=== PATIENT | male | born 1980 | race African-American/Black ===

== ENCOUNTER 2017-07-19 19:28 | Emergency (ER) | payer OTHER | END 2017-07-19 21:18 | disposition home or self-care (01) | LOC: ER 19:28 | DX: J06.9 Acute upper respiratory infection, unspecified (principal) | CPT/HCPCS: 99283 ==

== ENCOUNTER 2018-03-14 20:57 | Emergency (ER) | payer OTHER ==
[~2018-03-14] VITALS: Ht 78.7 cm; Wt 97.5 kg
[~2018-03-14 20:57] MED LIST: AZIT250T PO; BENZ100C PO; IBUP-1007 PO; PRED20TA PO; PROAIR HFA8.5 GM INH; PROAIR RESPICL90 MCG IH
[2018-03-14 21:30] LABS: BILIRUBIN,URINE NEGATIVE (NEG); CLARITY,URINE CLEAR; COLOR,URINE YELLOW; NITRITE,URINE NEGATIVE (NEG); PROTEIN,URINE NEGATIVE (NEG-TRACE)
[2018-03-14 21:40] LABS: BACTERIA,URINE 0 /HPF (0-FEW); RBC,URINE OCC /HPF (0-2); SQUAMOUS EPITHELIAL CELL,UR MOD /LPF; WBC,URINE 0 /HPF (0-4)
--- NOTE | 2018-03-14 21:46 | PHYS DOC ---
Past Medical History Past Medical History: No Pertinent History Past Surgical History: No Surgical History Alcohol Use: None Drug Use: None Adult General Chief Complaint Chief Complaint: GROIN PAIN [facility] HPI Patient is a 38 year old male who presents with bilateral groin pain and left testicular pain that has been present for the last couple of days. Patient also indicates he has lower back pain. He denies any chest pain, shortness breath or fever. Patient rates the pain as being moderate and states the pain is worsened with palpation in his groin. He denies any penile discharge or urinary discomfort. Patient states that lower back pain is worsened with movement. He denies any abdominal pain, nausea or vomiting. Review of Systems Review of Systems Constitutional: Denies fever or chills [] Respiratory: Denies cough or shortness of breath [] Cardiovascular: No additional information not addressed in HPI [] GI: Denies abdominal pain, nausea, vomiting or diarrhea [] : Denies dysuria or hematuria. Complains of bilateral groin and left testicular pain. [] Musculoskeletal: [place] of lower back pain. [] All other systems were reviewed and found to be within normal limits, except as documented in this note. Allergies Allergies Allergies Coded Allergies Type Severity Reaction Last Updated Verified No Known Drug Allergies 07/19/17 No Physical Exam Physical Exam Constitutional: Well developed, well nourished, no acute distress, non-toxic appearance. [] HENT: Normocephalic, atraumatic, bilateral external ears normal, oropharynx moist, no oral exudates, nose normal. [] Eyes: PERRLA, EOMI, conjunctiva normal, no discharge. [] Neck: Normal range of motion, no tenderness, supple. [] Cardiovascular: Regular rate and rhythm [] Lungs & Thorax: Bilateral breath sounds clear to auscultation [] Abdomen: Bowel sounds normal, soft, no tenderness. [] : No scrotal masses are identified on exam. There is tenderness to palpation around the epididymis of the left testicle. No hernia or mass is appreciated. [] Skin: Warm, dry, no erythema, no rash. [] Back: There is tenderness to palpation in the bilateral lumbar paraspinal musculature without palpable spasm. [] Extremities: No tenderness, no cyanosis, no clubbing, ROM intact, no edema. [] Neurologic: Alert and oriented X 3, normal motor function, normal sensory function, no focal deficits noted. [] Current Patient Data Vital Signs Vital Signs Date Time Temp Pulse Resp B/P (MAP) Pulse Ox O2 Delivery O2 Flow Rate FiO2 03/14/18 22:11 98.1 18 137/82 (100) 99 98.1 03/14/18 21:08 69 Room Air Lab Values Laboratory Tests Test 03/14/18 21:08 03/14/18 21:38 Urine Collection Type Void Urine Color Yellow Urine Clarity Clear Urine pH 6.0 Urine Specific Shannon 1.020 Urine Protein Negative mg/dL (NEG-TRACE) Urine Glucose (UA) Negative mg/dL (NEG) Urine Ketones (Stick) Negative mg/dL (NEG) Urine Blood Negative (NEG) Urine Nitrite Negative (NEG) Urine Bilirubin Negative (NEG) Urine Urobilinogen Dipstick 1.0 mg/dL (0.2 mg/dL) Urine Leukocyte Esterase Negative (NEG) Urine RBC Occ /HPF (0-2) Urine WBC 0 /HPF (0-4) Urine Squamous Epithelial Cells Mod /LPF Urine Bacteria 0 /HPF (0-FEW) Urine Mucus Slight /LPF White Blood Count 7.8 x10^3/uL (4.0-11.0) Red Blood Count 4.58 x10^6/uL (4.30-5.70) Hemoglobin 14.1 g/dL (13.0-17.5) Hematocrit 41.5 % (39.0-53.0) Mean Corpuscular Volume 91 fL (79-100) Mean Corpuscular Hemoglobin 31 pg (25-35) Mean Corpuscular Hemoglobin Concent 34 g/dL (31-37) Red Cell Distribution Width 14.6 % (11.5-14.5) H Platelet Count 240 x10^3/uL (140-400) Neutrophils (%) (Auto) 46 % (31-73) Lymphocytes (%) (Auto) 40 % (24-48) Monocytes (%) (Auto) 10 % (0-9) H Eosinophils (%) (Auto) 3 % (0-3) Basophils (%) (Auto) 1 % (0-3) Neutrophils # (Auto) 3.6 x10^3uL (1.8-7.7) Lymphocytes # (Auto) 3.1 x10^3/uL (1.0-4.8) Monocytes # (Auto) 0.7 x10^3/uL (0.0-1.1) Eosinophils # (Auto) 0.2 x10^3/uL (0.0-0.7) Basophils # (Auto) 0.1 x10^3/uL (0.0-0.2) Sodium Level 141 mmol/L (136-145) Potassium Level 3.6 mmol/L (3.5-5.1) Chloride Level 105 mmol/L (98-107) Carbon Dioxide Level 26 mmol/L (21-32) Anion Gap 10 (6-14) Blood Urea Nitrogen 14 mg/dL (8-26) Creatinine 1.2 mg/dL (0.7-1.3) Estimated GFR (Cockcroft-Gault) 82.4 BUN/Creatinine Ratio 12 (6-20) Glucose Level 96 mg/dL (70-99) Calcium Level 8.6 mg/dL (8.5-10.1) Total Bilirubin Pending Aspartate Amino Transferase (AST) Pending Alanine Aminotransferase (ALT) Pending Alkaline Phosphatase Pending Total Protein Pending Albumin Pending Albumin/Globulin Ratio Pending Laboratory Tests 03/14/18 21:38 Laboratory Tests 03/14/18 21:38 EKG EKG [] Radiology/Procedures Radiology/Procedures [] Course & Med Decision Making Course & Med Decision Making Pertinent Labs and Imaging studies reviewed. (See chart for details) Workup has been initiated on this patient to include CBC, metabolic panel, UA and scrotal ultrasound. At this time, majority of workup is pending and patient is being signed out to oncoming ER physician, Dr. Warren, at 10:00 PM. 22:10: Patient now states he has to leave because his ride has to go to work. Patient was encouraged to stay to complete his workup. He did not yet have ultrasound completed. Patient however refuses. He is discharged from the ER. He is in no acute distress. His urinalysis is normal. He is advised to come back to the ER when he has time to complete his workup or if his symptoms worsen to come back immediately. Dragon Disclaimer Dragon Disclaimer This electronic medical record was generated, in whole or in part, using a voice recognition dictation system. Departure Departure Disposition: 01 HOME, SELF-CARE Condition: GOOD Referrals: NO PCP (PCP) HAKEEM LOWRY Jr. DO Mar 14, 2018 21:46 BAL WARREN DO Mar 14, 2018 22:17
[2018-03-14 21:52] LABS: BASO # 0.1 x10^3/uL (0.0-0.2); BASO % 1 % (0-3); EOS # 0.2 x10^3/uL (0.0-0.7); EOS % 3 % (0-3); HEMATOCRIT 41.5 % (39.0-53.0); HEMOGLOBIN 14.1 g/dL (13.0-17.5); LYMPH # 3.1 x10^3/uL (1.0-4.8); LYMPH % 40 % (24-48); MEAN CORPUSCULAR HEMOGLOBIN 31 pg (25-35); MEAN CORPUSCULAR HGB CONC 34 g/dL (31-37); MEAN CORPUSCULAR VOLUME 91 fL (79-100); MONO # 0.7 x10^3/uL (0.0-1.1); MONO % 10 % (0-9); NEUT # 3.6 x10^3uL (1.8-7.7); NEUT % 46 % (31-73); PLATELET COUNT 240 x10^3/uL (140-400); RED BLOOD COUNT 4.58 x10^6/uL (4.30-5.70); RED CELL DISTRIBUTION WIDTH 14.6 % (11.5-14.5); WHITE BLOOD COUNT 7.8 x10^3/uL (4.0-11.0)
[2018-03-14 22:04] LABS: CALCIUM 8.6 mg/dL (8.5-10.1); CREATININE 1.2 mg/dL (0.7-1.3); GFR 82.4; POTASSIUM 3.6 mmol/L (3.5-5.1)
[2018-03-14 22:11] VITALS: BP 137/82
[2018-03-14 22:11] LABS: ALBUMIN 3.4 g/dL (3.4-5.0); ALBUMIN/GLOBULIN RATIO 0.9 (1.0-1.7); TOTAL BILIRUBIN 0.2 mg/dL (0.2-1.0); TOTAL PROTEIN 7.4 g/dL (6.4-8.2)
== END 2018-03-14 22:10 | disposition home or self-care (01) ==
LOC: ER 20:57
DX: N50.812 Left testicular pain (principal); M54.5 Low back pain; R10.32 Left lower quadrant pain; R10.31 Right lower quadrant pain
CPT/HCPCS: 36415; 80053; 81001; 85025; 99283

== ENCOUNTER 2018-05-02 15:27 | Emergency (ER) | payer OTHER ==
[~2018-05-02] VITALS: Ht 170.2 cm; Wt 78.0 kg
[~2018-05-02 15:27] MED LIST changes: +ALBU2.5V8 INH; -PROAIR HFA8.5 GM INH
[2018-05-02 15:48] VITALS: BP 148/89
--- NOTE | 2018-05-02 15:51 | PHYS DOC ---
Past Medical History Past Medical History: No Pertinent History Additional Past Medical Histor: patient denies (AMYCOMPA PAZ) Past Surgical History: No Surgical History Additional Past Surgical Histo: patient denies (AMYCOMPA PAZ) Alcohol Use: Rarely Drug Use: Marijuana (AMYCOMPA APRN) Adult General Chief Complaint Chief Complaint: ABSCESS HPI HPI Patient is a 38 year old male who presents with left inner thigh abscess for 2- 3 weeks. Patient denies any drainage from the area. (AMYCOMPA APRN) Review of Systems Review of Systems Constitutional: Denies fever or chills [] Musculoskeletal: Denies back pain or joint pain [] Integument: Reports left inner thigh abscess Neurologic: Denies headache, focal weakness or sensory changes [] All other systems were reviewed and found to be within normal limits, except as documented in this note. (AMYCOMPA APRN) Current Medications Current Medications Current Medications Medications (Trade) Dose Ordered Sig/Aramis Start Time Stop Time Status Last Admin Dose Admin Acetaminophen/ Hydrocodone Bitart (Lortab 5/325) 2 tab 1X ONCE 05/02/18 16:00 05/02/18 16:01 DC 05/02/18 16:14 2 TAB Diphtheria/ Tetanus/Acell Pertussis (Boostrix) 0.5 ml ONCE ONCE 05/02/18 16:00 05/02/18 16:01 DC 05/02/18 16:13 0.5 ML Lidocaine/Sodium Bicarbonate (Buffered Lidocaine 1%) 3 ml 1X ONCE 05/02/18 16:00 05/02/18 16:01 DC 05/02/18 16:13 3 ML (ABDON PIERRE MD) Allergies Allergies Allergies Coded Allergies Type Severity Reaction Last Updated Verified No Known Drug Allergies 07/19/17 No (ABDON PIERRE MD) Physical Exam Physical Exam Constitutional: Well developed, well nourished, no acute distress, non-toxic appearance. [] Skin: Warm, dry, left inner thigh with an indurated area approximately 2 x 2 centimeters, the area feels warm and tender to touch and slightly fluctuant. There is slight erythema over the area. Back: No tenderness, no CVA tenderness. [] Extremities: No tenderness, no cyanosis, no clubbing, ROM intact, no edema. [] Neurologic: Alert and oriented X 3, normal motor function, normal sensory function, no focal deficits noted. [] Psychologic: Affect normal, judgement normal, mood normal. [] (COMPA REYES APRN) Current Patient Data Vital Signs Vital Signs Date Time Temp Pulse Resp B/P (MAP) Pulse Ox O2 Delivery O2 Flow Rate FiO2 05/02/18 16:14 17 99 Room Air 05/02/18 15:48 99.1 109 148/89 (108) 99.1 (ABDON PIERRE MD) EKG EKG [] (COMPA REYES APRN) Radiology/Procedures Radiology/Procedures Indication: abscess right inner thigh Procedure: The patient was positioned appropriately. Local anesthesia was 1% buffered lidocaine approximately 2 mL. An incision was then made over the apex of the lesion with an 11 blade and moderate amount of yellow purulent material was expressed. The drainage cavity was irrigated and packed with sterile gauze. The patients tetanus status updated as needed. The patient tolerated the procedure well. Complications: none.[] (COMPA REYES APRN) Course & Med Decision Making Course & Med Decision Making Pertinent Labs and Imaging studies reviewed. (See chart for details) Patient is an abscess with slight cellulitis on the left inner thigh. Tetanus was updated, abscess was drained and packed by me as noted in procedures. Bactrim prescription provided and hydrocodone for pain. Follow-up with the ED in 2 days for wound check and packing removal. (COMPA REYES APRN) Course & Med Decision Making The chart was reviewed. Agree with the plan of care. (ABDON PIERRE MD) Dragon Disclaimer Dragon Disclaimer This electronic medical record was generated, in whole or in part, using a voice recognition dictation system. (COMPA REYES APRN) Departure Departure Impression: Primary Impression: Abscess or cellulitis of thigh Disposition: 01 HOME, SELF-CARE Condition: STABLE Referrals: NO PCP (PCP) follow up with the Ed in 2 days for packing removal and wound check Patient Instructions: Abscess, Cellulitis, [id number] Additional Instructions: Your abscess to the right inner thigh was drained in the emergency room and packed. You can shower and wash the area. Apply warm compresses to the area twice a day. Come back to the ED in 2 days for wound check and packing removal. Take the prescribed antibiotics until completed. Scripts Hydrocodone/Apap 5-325 (NORCO 5-325 TABLET) 1 Each Tablet 1-2 TAB PO Q6HRS, #10 TAB Prov: COMPA REYES APRN 05/02/18 Sulfamethoxazole/Trimethoprim (BACTRIM DS TABLET) 1 Each Tablet 1 TAB PO BID, #20 TAB Prov: COMPA REYES APRN 05/02/18 COMPA REYES APRN May 02, 2018 15:51 ABDON PIERRE MD May 03, 2018 10:34
[2018-05-02] MEDS ORDERED: HYDROcodone/APAP 5/325MG 1 TAB TABLET PO ONE (16:00)
[2018-05-02] MEDS ORDERED: DIPHTH,PERTUSS(ACELL),TET TOX 0.5 ML DISP.SYRIN. VAX IM ONE (16:00)
[2018-05-02] MEDS ORDERED: LIDOCAINE WITH 8.4% SOD BICARB 3 ML DISP.SYRIN. INJ ONE (16:00)
[2018-05-02] MEDS ORDERED: HYDR-3164 PO (17:27)
[2018-05-02] MEDS ORDERED: SULF1TAB24 PO (17:27)
== END 2018-05-02 17:40 | disposition home or self-care (01) ==
LOC: ER 15:27
DX: L02.416 Cutaneous abscess of left lower limb (principal)
CPT/HCPCS: 10060; 90471; 90715; 99283-25

== ENCOUNTER 2018-05-05 13:53 | Emergency (ER) | payer OTHER ==
[~2018-05-05] VITALS: Ht 167.6 cm; Wt 78.0 kg
[~2018-05-05 13:53] MED LIST changes: +HYDR-3164 PO; +SULF1TAB24 PO
--- NOTE | 2018-05-05 15:16 | PHYS DOC ---
Past Medical History Past Medical History: No Pertinent History Additional Past Medical Histor: patient denies Past Surgical History: No Surgical History Additional Past Surgical Histo: patient denies Alcohol Use: None Drug Use: None Adult General Chief Complaint Chief Complaint: WOUND RECHECK/SUTURE REMOVAL [facility] Patient is a 38 year old male who presents with a wound to his inner left eye that was I&D and packed on May 02. Patient is here for a wound check. Review of Systems Review of Systems Constitutional: Denies fever or chills [] Eyes: Denies change in visual acuity, redness, or eye pain [] HENT: Denies nasal congestion or sore throat [] Respiratory: Denies cough or shortness of breath [] Cardiovascular: No additional information not addressed in HPI [] GI: Denies abdominal pain, nausea, vomiting, bloody stools or diarrhea [] : Denies dysuria or hematuria [] Musculoskeletal: Denies back pain or joint pain [] Integument: Denies rash or skin lesions [] Neurologic: Denies headache, focal weakness or sensory changes [] Endocrine: Denies polyuria or polydipsia [] All other systems were reviewed and found to be within normal limits, except as documented in this note. Allergies Allergies Allergies Coded Allergies Type Severity Reaction Last Updated Verified No Known Drug Allergies 07/19/17 No Physical Exam Physical Exam Constitutional: Well developed, well nourished, no acute distress, non-toxic appearance. [] HENT: Normocephalic, atraumatic, bilateral external ears normal, oropharynx moist, no oral exudates, nose normal. [] Eyes: PERRLA, EOMI, conjunctiva normal, no discharge. [] Neck: Normal range of motion, no tenderness, supple, no stridor. [] Cardiovascular:Heart rate regular rhythm, no murmur [] Lungs & Thorax: Bilateral breath sounds clear to auscultation [] Abdomen: Bowel sounds normal, soft, no tenderness, no masses, no pulsatile masses. [] Skin: Warm, dry, no erythema, no rash. [] Back: No tenderness, no CVA tenderness. [] Extremities: No tenderness, no cyanosis, no clubbing, ROM intact, no edema. [] Neurologic: Alert and oriented X 3, normal motor function, normal sensory function, no focal deficits noted. [] Psychologic: Affect normal, judgement normal, mood normal. [] Current Patient Data Vital Signs Vital Signs Date Time Temp Pulse Resp B/P (MAP) Pulse Ox O2 Delivery O2 Flow Rate FiO2 05/05/18 15:23 98.2 72 16 128/68 (88) 99 Room Air 98.2 EKG EKG [] Radiology/Procedures Radiology/Procedures [] Course & Med Decision Making Course & Med Decision Making Patient is a 38 year old male who presents with a wound to his inner left eye that was I&D and packed on May 02. Patient is here for a wound check. Alert and Oriented. Afebrile. Area is healing and not draining. packing removed. No signs of infection. No cellulitis. Patient is told that he must keep the area clean and change the bandage twice a day. Patient is to keep taking his antibiotic as prescribed. Wound is redressed with gauze. Dragon Disclaimer Dragon Disclaimer This electronic medical record was generated, in whole or in part, using a voice recognition dictation system. Departure Departure Impression: Primary Impression: Wound check, abscess Disposition: 01 HOME, SELF-CARE Condition: STABLE Referrals: NON,STAFF (PCP) Patient Instructions: Abscess, Care After, Wound Check Additional Instructions: Change dressing at least once a day. Clean with soap and water. Continue taking her antibiotic until it is totally gone. LAVONNE BARRIOS REPACK ROOM WORKER May 05, 2018 15:16
[2018-05-05 15:23] VITALS: BP 128/68
== END 2018-05-05 15:29 | disposition home or self-care (01) ==
LOC: ER 13:53
DX: Z48.00 Encounter for change or removal of nonsurgical wound dressing (principal)
CPT/HCPCS: 99281

== ENCOUNTER 2018-08-21 21:59 | Emergency (ER) | payer OTHER ==
[~2018-08-21] VITALS: Ht 170.2 cm; Wt 78.0 kg
[2018-08-21 22:49] VITALS: BP 127/90
[2018-08-22] MEDS ORDERED: IBUPROFEN 200 MG TABLET. PO ONE
[2018-08-22] MEDS ORDERED: SULF1TAB24 PO (00:16)
--- NOTE | 2018-08-22 00:16 | PHYS DOC ---
Past Medical History Past Medical History: No Pertinent History Additional Past Medical Histor: patient denies (KYLEE JAY APRN) Past Surgical History: No Surgical History Additional Past Surgical Histo: patient denies (KYLEE JAY APRN) Alcohol Use: None Drug Use: None (KYLEE JAY APRN) Adult General Chief Complaint Chief Complaint: FLU SYMPTOM HPI HPI 38-year-old male presents to ER with complaints of vague cold-like illness and small sore underneath his scrotum. Pt reports he was seen at on and was told he had a viral illness. Patient states his symptoms have been ongoing for the past month. Patient states he developed a small sore underneath his scrotum denies any urinary symptoms, concerns for STDs, or discharge. Patient denies taking any ibuprofen or Tylenol for body aches and feverish feeling. Patient states he has been eating and drinking without episodes of vomiting or diarrhea. (KYLEE JAY APRN) Review of Systems Review of Systems Constitutional: Reports felt feverish denies checking his temperature. Reports generalized fatigue and body aches Eyes: Denies change in visual acuity, redness, or eye pain [] HENT: Reports nasal congestion/sore throat Respiratory: Denies shortness of breath. Reports nonprod cough Cardiovascular: No additional information not addressed in HPI [] GI: Denies abdominal pain, nausea, vomiting, bloody stools or diarrhea [] : Denies dysuria or hematuria [] Musculoskeletal: Denies back pain or joint pain [] Integument: Denies rash or skin lesions [] Neurologic: Denies headache, focal weakness or sensory changes [] Endocrine: Denies polyuria or polydipsia [] All other systems were reviewed and found to be within normal limits, except as documented in this note. (KYLEE JAY APRN) Current Medications Current Medications Current Medications Medications (Trade) Dose Ordered Sig/Aramis Start Time Stop Time Status Last Admin Dose Admin Ibuprofen (Motrin) 600 mg 1X ONCE 08/22/18 00:00 08/22/18 00:01 DC (MOSES MARTÍNEZ MD) Allergies Allergies Allergies Coded Allergies Type Severity Reaction Last Updated Verified No Known Drug Allergies 07/19/17 No (MOSES MARTÍNEZ MD) Physical Exam Physical Exam Constitutional: Well developed, well nourished, no acute distress, non-toxic appearance. [] HENT: Normocephalic, atraumatic, bilateral ears normal, oropharynx moist- no pharyngeal swelling/erythema, no oral exudates, nose normal. [] Eyes: Pupils equal, conjunctiva normal, no discharge. [] Neck: Normal range of motion, no tenderness, supple, no stridor. [] Cardiovascular:Heart rate regular rhythm, no murmur [] Lungs & Thorax: Bilateral breath sounds clear to auscultation- resp. equal/nonlabored Abdomen: Bowel sounds normal, soft, no tenderness, no masses, no pulsatile masses. [] RN at bedside forward exam. Patient has small pustule just below his scrotum no erythema, fluctuation or induration, crepitus, or drainage. No scrotal or testicular swelling/pain- no penile rash/lesions/drainage Skin: Warm, dry, no erythema, no rash. [] Back: No tenderness, no CVA tenderness. [] Extremities: No tenderness, no cyanosis, no clubbing, ROM intact, no edema. [] Neurologic: Alert and oriented X 3, normal motor function, normal sensory function, no focal deficits noted. [] Psychologic: Affect normal, judgement normal, mood normal. [] (KYLEE JAY APRN) Current Patient Data Vital Signs Vital Signs Date Time Temp Pulse Resp B/P (MAP) Pulse Ox O2 Delivery O2 Flow Rate FiO2 08/21/18 22:49 98.6 99 18 127/90 (102) 99 Room Air 98.6 (MOSES MARTÍNEZ MD) EKG EKG [] (KYLEE JAY APRN) Radiology/Procedures Radiology/Procedures [] (KYLEE JAY APRN) Course & Med Decision Making Course & Med Decision Making Patient had cold-like illness which she was evaluated in the ER for. Exam was unremarkable. Discussed probable viral illness. Discussed symptomatic treatment. Pt was provided with dose of ibuprofen Patient had small pimple-like sore below his scrotum which she had concerns for abscess. Will provide wait and watch p rescription for Bactrim if area gets worse patient was advised to start antibiotic. Patient advised if he has concerns he should follow-up with primary care physician for reevaluation and further care. Patient was nontoxic and in no visible distress during exam. [] (KYLEE JAY APRN) Course & Med Decision Making Staff Physician Addendum: I was working in the ER during the course of this patient's visit. I was available for consultation as needed, but I was not directly involved in the care of this patient. (MOSES MARTÍNEZ MD) Dragon Disclaimer Dragon Disclaimer This electronic medical record was generated, in whole or in part, using a voice recognition dictation system. (KYLEE JAY APRN) Departure Departure Impression: Primary Impression: Viral syndrome Additional Impression: Abscess Disposition: HOME, SELF-CARE Condition: STABLE Referrals: NO PCP (PCP) Patient Instructions: Abscess, Smoking Cessation, Viral Syndrome Additional Instructions: Apply warm compress to abscess 2-3 times a day for 20-30 minutes at a time. He should have your wound reevaluated by her primary care physician in 2-3 days. Avoid smoking. Drink plenty of water daily. Tylenol and/or ibuprofen as needed for pain and fever as directed on container. If symptoms persist follow-up with your primary care physician. Scripts Sulfamethoxazole/Trimethoprim (BACTRIM DS TABLET) 1 Each Tablet 1 TAB PO BID, #14 TAB 0 Refills Prov: KYLEE JAY APRN 08/22/18 Problem Qualifiers KYLEE JAY APRN August 22, 2018 00:16 MOSES MARTÍNEZ MD August 28, 2018 06:57
== END 2018-08-22 00:36 | disposition home or self-care (01) ==
LOC: ER 21:59
DX: B34.9 Viral infection, unspecified (principal); N49.2 Inflammatory disorders of scrotum
CPT/HCPCS: 99283

== ENCOUNTER 2018-09-25 11:58 | Emergency (ER) | payer OTHER ==
[~2018-09-25] VITALS: Ht 170.2 cm; Wt 77.1 kg
--- NOTE | 2018-09-25 12:43 | PHYS DOC ---
Past Medical History Past Medical History: No Pertinent History Additional Past Medical Histor: patient denies Past Surgical History: No Surgical History Additional Past Surgical Histo: patient denies Additional Information: SMOKES 1 CIGARETTE A DAY Alcohol Use: None Drug Use: None Adult General Chief Complaint Chief Complaint: CHEST WALL PAIN [facility] HPI 38-year-old male presents to ER via POV for complaints of chest pain and ongoing symptoms which she has had it since August. Patient was seen in August by this provider with complaints of viral type illness and he had been also evaluated at . Initial exam patient reports he has small sore on his lower abdomen however he then pulled his pants down showing this provider his genitals with small sore to left side of his penis. Patient had also had this complaint and he was evaluated by this provider in August. Area looks like a small pimple where last month it had been more of an abscess.-He had been treated with Bactrim for that sore. Pt reports she does smoke cigarettes daily and also takes "Zbigniew" which he reports is legal synthetic marijuana. Review of Systems Review of Systems Constitutional: Denies fever or chills [] Eyes: Denies change in visual acuity, redness, or eye pain [] HENT: Denies nasal congestion or sore throat [] Respiratory: Denies cough or shortness of breath [] Cardiovascular: No additional information not addressed in HPI [] GI: Denies abdominal pain, nausea, vomiting, bloody stools or diarrhea [] : Denies dysuria or hematuria [] Musculoskeletal: Denies back pain or joint pain [] Integument: Denies rash or skin lesions [] Neurologic: Denies headache, focal weakness or sensory changes [] Endocrine: Denies polyuria or polydipsia [] All other systems were reviewed and found to be within normal limits, except as documented in this note. Allergies Allergies Allergies Coded Allergies Type Severity Reaction Last Updated Verified No Known Drug Allergies 07/19/17 No Physical Exam Physical Exam Constitutional: Well developed, well nourished, no acute distress, non-toxic appearance. [] HENT: Normocephalic, atraumatic, bilateral external ears normal, oropharynx moist, no oral exudates, nose normal. [] Eyes: PERRLA, EOMI, conjunctiva normal, no discharge. [] Neck: Normal range of motion, no tenderness, supple, no stridor. [] Cardiovascular:Heart rate regular rhythm, no murmur [] Lungs & Thorax: Bilateral breath sounds clear to auscultation [] Abdomen: Bowel sounds normal, soft, no tenderness, no masses, no pulsatile masses. [] Skin: Warm, dry, no erythema, no rash. [] Back: No tenderness, no CVA tenderness. [] Extremities: No tenderness, no cyanosis, no clubbing, ROM intact, no edema. [] Neurologic: Alert and oriented X 3, normal motor function, normal sensory function, no focal deficits noted. [] Psychologic: Affect normal, judgement normal, mood normal. [] Current Patient Data Vital Signs Vital Signs Date Time Temp Pulse Resp B/P (MAP) Pulse Ox O2 Delivery O2 Flow Rate FiO2 09/25/18 15:02 61 15 101/66 (78) 98 Room Air 09/25/18 12:03 99.2 99.2 Lab Values Laboratory Tests Test 09/25/18 12:50 09/25/18 12:55 Urine Collection Type Unknown Urine Color Yellow Urine Clarity Clear Urine pH 5.5 Urine Specific [place] 1.025 Urine Protein Negative mg/dL (NEG-TRACE) Urine Glucose (UA) Negative mg/dL (NEG) Urine Ketones (Stick) Negative mg/dL (NEG) Urine Blood Negative (NEG) Urine Nitrite Negative (NEG) Urine Bilirubin Small (NEG) Urine Urobilinogen Dipstick 1.0 mg/dL (0.2 mg/dL) Urine Leukocyte Esterase Negative (NEG) Urine RBC 0 /HPF (0-2) Urine WBC Occ /HPF (0-4) Urine Squamous Epithelial Cells Few /LPF Urine Bacteria 0 /HPF (0-FEW) Urine Hyaline Casts Few /HPF Urine Mucus Slight /LPF Urine Opiates Screen Neg (NEG) Urine Methadone Screen Neg (NEG) Urine Barbiturates Neg (NEG) Urine Phencyclidine Screen Neg (NEG) Urine Amphetamine/Methamphetamine Neg (NEG) Urine Benzodiazepines Screen Neg (NEG) Urine Cocaine Screen Neg (NEG) Urine Cannabinoids Screen Pos (NEG) Urine Ethyl Alcohol Neg (NEG) White Blood Count 13.7 x10^3/uL (4.0-11.0) H Red Blood Count 4.87 x10^6/uL (4.30-5.70) Hemoglobin 15.0 g/dL (13.0-17.5) Hematocrit 44.1 % (39.0-53.0) Mean Corpuscular Volume 91 fL (79-100) Mean Corpuscular Hemoglobin 31 pg (25-35) Mean Corpuscular Hemoglobin Concent 34 g/dL (31-37) Red Cell Distribution Width 14.8 % (11.5-14.5) H Platelet Count 248 x10^3/uL (140-400) Neutrophils (%) (Auto) 77 % (31-73) H Lymphocytes (%) (Auto) 17 % (24-48) L Monocytes (%) (Auto) 6 % (0-9) Eosinophils (%) (Auto) 0 % (0-3) Basophils (%) (Auto) 1 % (0-3) Neutrophils # (Auto) 10.5 x10^3uL (1.8-7.7) H Lymphocytes # (Auto) 2.3 x10^3/uL (1.0-4.8) Monocytes # (Auto) 0.8 x10^3/uL (0.0-1.1) Eosinophils # (Auto) 0.1 x10^3/uL (0.0-0.7) Basophils # (Auto) 0.1 x10^3/uL (0.0-0.2) Sodium Level 140 mmol/L (136-145) Potassium Level 4.2 mmol/L (3.5-5.1) Chloride Level 106 mmol/L (98-107) Carbon Dioxide Level 24 mmol/L (21-32) Anion Gap 10 (6-14) Blood Urea Nitrogen 15 mg/dL (8-26) Creatinine 1.0 mg/dL (0.7-1.3) Estimated GFR (Cockcroft-Gault) 101.7 BUN/Creatinine Ratio 15 (6-20) Glucose Level 99 mg/dL (70-99) Calcium Level 9.1 mg/dL (8.5-10.1) Magnesium Level 2.0 mg/dL (1.8-2.4) Total Bilirubin 0.7 mg/dL (0.2-1.0) Aspartate Amino Transferase (AST) 14 U/L (15-37) L Alanine Aminotransferase (ALT) 12 U/L (16-63) L Alkaline Phosphatase 92 U/L (46-116) Troponin I Quantitative < 0.017 ng/mL (0.000-0.055) Total Protein 7.5 g/dL (6.4-8.2) Albumin 3.8 g/dL (3.4-5.0) Albumin/Globulin Ratio 1.0 (1.0-1.7) Laboratory Tests 09/25/18 12:55 Laboratory Tests 09/25/18 12:55 EKG EKG EKG obtained 09/25/18 at [address] Rivera Sinus rhythm Incomplete rt BBB Rate 67 No STEMI Radiology/Procedures Radiology/Procedures PROCEDURE: CHEST PA & LATERAL CHEST PA LATERAL History: Back pain, cough, fever Comparison: None. Findings: The cardiomediastinal silhouette is normal. Pulmonary vasculature is normal. The lungs are clear. No pleural effusion or pneumothorax is seen. There is no acute bone abnormality. IMPRESSION: No acute cardiopulmonary process. Electronically signed by: Diana Low MD (09/25/2018 1:49 PM) [id number] DICTATED and SIGNED BY: DIANA LOW MD DATE: 09/25/18 1349 Course & Med Decision Making Course & Med Decision Making Pertinent Labs and Imaging studies reviewed. (See chart for details) 1415: Pt was evaluated in the ER for multiple complaints. He reports symptoms have been ongoing for over a month and has been evaluated at . Test results were discussed with patient. Chest x-ray negative. EKG with no acute ST elevation or STEMI and troponin was negative. Patient had WBCs of 13.6 no bands and no source of infection identified. Patient advised on cessation of smoking Zbigniew- which he reports is a OTC synthetic marijuana. Patient had concerns of small sore on his penis shaft and on evaluation it appeared he had small pimple on left side. No surrounding induration or fluctuation. Wound did not appear to be an abscess. Patient had no penile discharge. Patient had denied any urinary symptoms or concerns for STDs. Education provided on signs and symptoms to return to ER. Discharge instructions were discussed. Patient to follow-up with primary care physician if symptoms persist or with any concerns. Dragon Disclaimer Dragon Disclaimer This electronic medical record was generated, in whole or in part, using a voice recognition dictation system. Departure Departure Impression: Primary Impression: Cough Additional Impression: Chest pain Disposition: HOME, SELF-CARE Condition: STABLE Referrals: NO PCP (PCP) Patient Instructions: Chest Pain (Nonspecific), Cough, Adult, Smoking Cessation Additional Instructions: Avoid smoking cigarettes as well as the [id number] Zbigniew. Drink plenty of fluids. Follow-up with your primary care physician for reevaluation and further care if symptoms persist. You had a small pimple-like sore on your penis avoid squeezing the wound. Apply a warm compress to the area every 3-4 hours for 20-30 minutes at a time. Problem Qualifiers KYLEE JAY [employer]LECT[employer] JOURNEYMAN Sep 25, 2018 12:43
--- NOTE | 2018-09-25 13:17 | EKG ---
[facility] [address] [place] [address] Test Date: 2018-09-25 Test Time: 12:06:29 Pat Name: LUH GUAMAN Department: Room: Gender: Clinical Sociologist: : 1980 Requested By: KYLEE JAY Order Number: [id number] Reading MD: Measurements Intervals [place] Rate: 66 P: 43 PA: 156 QRS: 3 QRSD: 96 T: 26 QT: 384 QTc: 408 Interpretive Statements SINUS RHYTHM INCOMPLETE RIGHT BUNDLE BRANCH BLOCK OTHERWISE NORMAL ECG No previous ECG available for comparison
[2018-09-25 13:21] LABS: BASO # 0.1 x10^3/uL (0.0-0.2); BASO % 1 % (0-3); CALCIUM 9.1 mg/dL (8.5-10.1); EOS # 0.1 x10^3/uL (0.0-0.7); EOS % 0 % (0-3); GFR 101.7; HEMATOCRIT 44.1 % (39.0-53.0); LYMPH # 2.3 x10^3/uL (1.0-4.8); LYMPH % 17 % (24-48); MEAN CORPUSCULAR HEMOGLOBIN 31 pg (25-35); MEAN CORPUSCULAR HGB CONC 34 g/dL (31-37); MEAN CORPUSCULAR VOLUME 91 fL (79-100); MONO # 0.8 x10^3/uL (0.0-1.1); MONO % 6 % (0-9); NEUT # 10.5 x10^3uL (1.8-7.7); NEUT % 77 % (31-73); PLATELET COUNT 248 x10^3/uL (140-400); POTASSIUM 4.2 mmol/L (3.5-5.1); RED BLOOD COUNT 4.87 x10^6/uL (4.30-5.70); RED CELL DISTRIBUTION WIDTH 14.8 % (11.5-14.5); WHITE BLOOD COUNT 13.7 x10^3/uL (4.0-11.0)
[2018-09-25 13:21] LABS: BILIRUBIN,URINE SMALL (NEG); CLARITY,URINE CLEAR; COLOR,URINE YELLOW; NITRITE,URINE NEGATIVE (NEG); PH,URINE 5.5; PROTEIN,URINE NEGATIVE (NEG-TRACE)
[2018-09-25 13:26] LABS: ALBUMIN 3.8 g/dL (3.4-5.0); TOTAL BILIRUBIN 0.7 mg/dL (0.2-1.0); TOTAL PROTEIN 7.5 g/dL (6.4-8.2)
[2018-09-25 13:30] LABS: BARBITURATES NEG (NEG); BENZODIAZEPINES NEG (NEG); CANNABINOIDS POS (NEG); COCAINE NEG (NEG); METHADONE NEG (NEG); OPIATES NEG (NEG); PHENCYCLIDINE NEG (NEG)
[2018-09-25 13:31] LABS: AMPHETAMINE/METHAMPHETAMINE NEG (NEG)
[2018-09-25 13:38] LABS: HYALINE CASTS, URINE FEW /HPF; SQUAMOUS EPITHELIAL CELL,UR FEW /LPF
[2018-09-25 13:39] LABS: BACTERIA,URINE 0 /HPF (0-FEW); RBC,URINE 0 /HPF (0-2); WBC,URINE OCC /HPF (0-4)
--- NOTE | 2018-09-25 13:52 | RAD ---
CHEST PA LATERAL History: Back pain, cough, fever Comparison: None. Findings: The cardiomediastinal silhouette is normal. Pulmonary vasculature is normal. The lungs are clear. No pleural effusion or pneumothorax is seen. There is no acute bone abnormality. IMPRESSION: No acute cardiopulmonary process. Electronically signed by: Maykel Gaytan MD (09/25/2018 1:49 PM) [id number]
[2018-09-25 15:02] VITALS: BP 101/66
== END 2018-09-25 15:11 | disposition home or self-care (01) ==
LOC: ER 11:58
DX: R07.89 Other chest pain (principal); R05 Cough; F17.210 Nicotine dependence, cigarettes, uncomplicated
CPT/HCPCS: 36415; 71046; 80053; 80307; 81001; 83735; 84484; 85025; 93005; 99285-25

== ENCOUNTER 2018-11-07 10:43 | Emergency (ER) | payer OTHER ==
[~2018-11-07] VITALS: Ht 170.2 cm; Wt 77.1 kg
[2018-11-07 11:11] VITALS: BP 126/78
--- NOTE | 2018-11-07 11:22 | PHYS DOC ---
Past Medical History Past Medical History: No Pertinent History Additional Past Medical Histor: patient denies Past Surgical History: No Surgical History Additional Past Surgical Histo: patient denies Alcohol Use: None Drug Use: None Adult General Chief Complaint Chief Complaint: FLU SYMPTOM HPI HPI 38-year-old male presents stating that he is coughing and sneezing and feeling bad. He denies any fever chills or sweats. He states is been going on for a couple days. He is wondering why it keeps coming back. He is not taken any medicine at home for symptom relief.[] Review of Systems Review of Systems Constitutional: Denies fever or chills [] Eyes: Denies change in visual acuity, redness, or eye pain [] HENT: Per history of present illness[] Respiratory: Dry cough[] Cardiovascular: No additional information not addressed in HPI [] GI: Denies abdominal pain, nausea, vomiting, bloody stools or diarrhea [] : Denies dysuria or hematuria [] Musculoskeletal: Denies back pain or joint pain [] Integument: Denies rash or skin lesions [] Neurologic: Denies headache, focal weakness or sensory changes [] Endocrine: Denies polyuria or polydipsia [] All other systems were reviewed and found to be within normal limits, except as documented in this note. Allergies Allergies Allergies Coded Allergies Type Severity Reaction Last Updated Verified No Known Drug Allergies 07/19/17 No Physical Exam Physical Exam Constitutional: Well developed, well nourished, no acute distress, non-toxic appearance. [] HENT: Normocephalic, atraumatic, bilateral external ears normal, oropharynx moist, no oral exudates, nose normal. [] Eyes: PERRLA, EOMI, conjunctiva normal, no discharge. [] Neck: Normal range of motion, no tenderness, supple, no stridor. [] Cardiovascular:Heart rate regular rhythm, no murmur [] Lungs & Thorax: Bilateral breath sounds clear to auscultation [] Abdomen: Bowel sounds normal, soft, no tenderness, no masses, no pulsatile mas ses. [] Skin: Warm, dry, no erythema, no rash. [] Back: No tenderness, no CVA tenderness. [] Extremities: No tenderness, no cyanosis, no clubbing, ROM intact, no edema. [] Neurologic: Alert and oriented X 3, normal motor function, normal sensory function, no focal deficits noted. [] Psychologic: Affect normal, judgement normal, mood normal. [] EKG EKG [] Radiology/Procedures Radiology/Procedures [] Course & Med Decision Making Course & Med Decision Making Pertinent Labs and Imaging studies reviewed. (See chart for details) [ED course: Evaluation reveals a 38-year-old male in absolutely no distress. I informed him that he can buy cold medicine [id number] and at that point he said that he wanted to be discharged.] Dragon Disclaimer Dragon Disclaimer This electronic medical record was generated, in whole or in part, using a voice recognition dictation system. Departure Departure Impression: Primary Impression: Seasonal allergies Disposition: 01 HOME, SELF-CARE Condition: STABLE Referrals: NO PCP (PCP) Patient Instructions: Allergies, Generic Additional Instructions: Return to emergency department with any new or concerning symptoms CHIDI MULLER DO Nov 07, 2018 11:22
== END 2018-11-07 11:29 | disposition home or self-care (01) ==
LOC: ER 10:43
DX: J30.2 Other seasonal allergic rhinitis (principal)
CPT/HCPCS: 99281

== ENCOUNTER 2019-05-10 10:21 | Emergency (ER) | payer OTHER ==
[~2019-05-10] VITALS: Ht 170.2 cm; Wt 77.2 kg
[2019-05-10 10:53] VITALS: BP 123/69
[2019-05-10] MEDS ORDERED: HYDROcodone/APAP 5/325MG 1 TAB TABLET PO ONE (11:30)
--- NOTE | 2019-05-10 11:34 | PHYS DOC ---
Past Medical History Past Medical History: No Pertinent History Additional Past Medical Histor: patient denies Past Surgical History: No Surgical History Additional Past Surgical Histo: patient denies Alcohol Use: None Drug Use: None Adult General Chief Complaint Chief Complaint: GROIN PAIN HPI HPI Patient is a 39 year old male who presents with states he has 3 left-sided lymph nodes in his groin that are painful for the last 3 months. He states he is also having testicular pain for the last 3 months. States when he lifts up his testicles it causes him pain. Patient denies any concerns for sexually transmitted diseases. Denies penile discharge or dysuria symptoms. He denies any abdominal pain, nausea, vomiting, fever, chest pain, shortness of air, diarrhea, constipation dizziness, headache, syncope, visual changes, weakness. Rates his pain a 9/10. Patient states he has no other complaints but states he needs a "check up". Review of Systems Review of Systems : testicle pain and lymph nodes. Denies dysuria or hematuria [] All other systems were reviewed and found to be within normal limits, except as documented in this note. Current Medications Current Medications Current Medications Medications (Trade) Dose Ordered Sig/Aramis Start Time Stop Time Status Last Admin Dose Admin Acetaminophen/ Hydrocodone Bitart (Lortab 5/325) 1 tab 1X ONCE 05/10/19 11:30 05/10/19 11:31 DC 05/10/19 11:48 1 TAB Allergies Allergies Allergies Coded Allergies Type Severity Reaction Last Updated Verified No Known Drug Allergies 07/19/17 No Physical Exam Physical Exam Constitutional: Well developed, well nourished, no acute distress, non-toxic appearance. [] HENT: Normocephalic, atraumatic, bilateral external ears normal, oropharynx moist, no oral exudates, nose normal. [] Eyes: PERRLA, EOMI, conjunctiva normal, no discharge. [] Neck: Normal range of motion, no tenderness, supple, no stridor. [] Cardiovascular:Heart rate regular rhythm, no murmur [] Lungs & Thorax: Bilateral breath sounds clear to auscultation [] Abdomen: Bowel sounds normal, soft, no tenderness, no masses, no pulsatile masses. Scrotum tender with lifting. 2 inguinal lymphnodes felt. [] Skin: Warm, dry, no erythema, no rash. [] Back: No tenderness, no CVA tenderness. [] Extremities: No tenderness, no cyanosis, no clubbing, ROM intact, no edema. [] Neurologic: Alert and oriented X 3, normal motor function, normal sensory function, no focal deficits noted. [] Psychologic: Affect normal, judgement normal, mood normal. [] Current Patient Data Vital Signs Vital Signs Date Time Temp Pulse Resp B/P (MAP) Pulse Ox O2 Delivery O2 Flow Rate FiO2 05/10/19 10:53 98.6 78 18 123/69 (87) 98 Room Air 98.6 Lab Values Laboratory Tests Test 05/10/19 11:15 05/10/19 12:05 Urine Collection Type Unknown Urine Color Yellow Urine Clarity Clear Urine pH 6.5 Urine Specific [place] 1.020 Urine Protein Negative mg/dL (NEG-TRACE) Urine Glucose (UA) Negative mg/dL (NEG) Urine Ketones (Stick) Negative mg/dL (NEG) Urine Blood Negative (NEG) Urine Nitrite Negative (NEG) Urine Bilirubin Negative (NEG) Urine Urobilinogen Dipstick 1.0 mg/dL (0.2 mg/dL) Urine Leukocyte Esterase Negative (NEG) Urine RBC Occ /HPF (0-2) Urine WBC Occ /HPF (0-4) Urine Squamous Epithelial Cells Mod /LPF Urine Bacteria 0 /HPF (0-FEW) Urine Mucus Mod /LPF White Blood Count 7.8 x10^3/uL (4.0-11.0) Red Blood Count 5.08 x10^6/uL (4.30-5.70) Hemoglobin 15.4 g/dL (13.0-17.5) Hematocrit 45.5 % (39.0-53.0) Mean Corpuscular Volume 90 fL (79-100) Mean Corpuscular Hemoglobin 30 pg (25-35) Mean Corpuscular Hemoglobin Concent 34 g/dL (31-37) Red Cell Distribution Width 14.8 % (11.5-14.5) H Platelet Count 251 x10^3/uL (140-400) Neutrophils (%) (Auto) 51 % (31-73) Lymphocytes (%) (Auto) 36 % (24-48) Monocytes (%) (Auto) 10 % (0-9) H Eosinophils (%) (Auto) 2 % (0-3) Basophils (%) (Auto) 1 % (0-3) Neutrophils # (Auto) 4.0 x10^3/uL (1.8-7.7) Lymphocytes # (Auto) 2.8 x10^3/uL (1.0-4.8) Monocytes # (Auto) 0.7 x10^3/uL (0.0-1.1) Eosinophils # (Auto) 0.2 x10^3/uL (0.0-0.7) Basophils # (Auto) 0.1 x10^3/uL (0.0-0.2) Sodium Level 139 mmol/L (136-145) Potassium Level 3.8 mmol/L (3.5-5.1) Chloride Level 103 mmol/L (98-107) Carbon Dioxide Level 26 mmol/L (21-32) Anion Gap 10 (6-14) Blood Urea Nitrogen 13 mg/dL (8-26) Creatinine 1.0 mg/dL (0.7-1.3) Estimated GFR (Cockcroft-Gault) 101.2 BUN/Creatinine Ratio 13 (6-20) Glucose Level 83 mg/dL (70-99) Calcium Level 8.8 mg/dL (8.5-10.1) Total Bilirubin 0.4 mg/dL (0.2-1.0) Aspartate Amino Transferase (AST) 18 U/L (15-37) Alanine Aminotransferase (ALT) 8 U/L (16-63) L Alkaline Phosphatase 89 U/L (46-116) Total Protein 7.7 g/dL (6.4-8.2) Albumin 3.7 g/dL (3.4-5.0) Albumin/Globulin Ratio 0.9 (1.0-1.7) L Laboratory Tests 05/10/19 12:05 Laboratory Tests 05/10/19 12:05 EKG EKG [] Radiology/Procedures Radiology/Procedures [] Impressions: [facility] [address] [place] [address] IMAGING REPORT Signed PATIENT: LUH GUAMAN ACCOUNT: [id number] : 1980 LOCATION: ER AGE: 39 SEX: M EXAM STATUS: REG ER ORD. PHYSICIAN: LAVONNE BARRIOS APRN REASON: Testicular pain, lumps PROCEDURE: TESTICULAR/SCROTUM EXAM: Testicular sonogram. HISTORY: Pain and lump. TECHNIQUE: Yarbrough scale and color Doppler sonographic imaging of the testes with spectral waveform analysis was performed. COMPARISON: None. FINDINGS: The right testis measures 4.2 x 2.3 x 2.3 cm. The left testis measures 4.5 x 2.4 x 1.8 cm. There is normal symmetric blood flow within both testes. The epididymides are unremarkable. There is a 5 x 4 x 2 mm hypoechoic lesion within the left scrotal wall at the site of palpable concern. This elicits no internal blood flow. There is no varicocele or hydrocele. IMPRESSION: 1. 5 mm nonvascular hypoechoic lesion along the inferior left scrotal wall at the site of palpable concern. If there is overlying pain and erythema, the possibility of a small abscess is not excluded. 2. Unremarkable testes. Electronically signed by: Nicolasa Hernández MD (05/10/2019 11:56 AM) [facility] DICTATED and SIGNED BY: NICOLASA HERNÁNDEZ MD DATE: 05/10/19 1156 Course & Med Decision Making Course & Med Decision Making Alert and oriented. Speaks in full clear sentences. Vital signs within normal limits. Patient has tenderness in the left groin and there is only 1-2 lymph nodes felt with palpation and they were tender. They did not move. Patient has testicular pain when lifting the scrotum up. No penile discharge. The lesions on the scrotum or penis. Abdomen soft and nontender. Ambulatory with a steady gait. Skin pink warm and dry. Denies any back pain. No CVA tenderness. No extremity edema. IMPRESSION: 1. 5 mm nonvascular hypoechoic lesion along the inferior left scrotal wall at the site of palpable concern. If there is overlying pain and erythema, the possibility of a small abscess is not excluded. 2. Unremarkable testes. Exam: Scrotum: Normal Hernia: None Testes/Epid: tender with lifting but w/ normal lie Cremaster: Reflex intact Lymph: 2 tender inguinal lymphadenopathy Discharge: None [] Dragon Disclaimer Dragon Disclaimer This electronic medical record was generated, in whole or in part, using a voice recognition dictation system. Departure Departure Impression: Primary Impression: Abscess Disposition: 01 HOME, SELF-CARE Condition: STABLE Referrals: NO PCP (PCP) Patient Instructions: Abscess Additional Instructions: Take medications as prescribed. Follow up with Urology. Scripts Hydrocodone/Apap 5-325 (NORCO 5-325 TABLET) 1 Each Tablet 1 TAB PO PRN Q6HRS PRN for PAIN, #10 TAB 0 Refills Prov: LAVONNE BARRIOS CREDENTIALING COORDINATOR 05/10/19 Cephalexin (KEFLEX) 500 Mg Capsule 1 CAP PO TID for 7 Days, #21 CAP 0 Refills Prov: LAVONNE BARRIOS CREDENTIALING COORDINATOR 05/10/19 Sulfamethoxazole/Trimethoprim (BACTRIM DS TABLET) 1 Each Tablet 1 TAB PO BID for 7 Days, #14 TAB 0 Refills Prov: LAVONNE BARRIOS CREDENTIALING COORDINATOR 05/10/19 LAVONNE BARRIOS APRN May 10, 2019 11:34
[2019-05-10 11:45] LABS: BILIRUBIN,URINE NEGATIVE (NEG); CLARITY,URINE CLEAR; COLOR,URINE YELLOW; NITRITE,URINE NEGATIVE (NEG); PH,URINE 6.5; PROTEIN,URINE NEGATIVE (NEG-TRACE)
[2019-05-10 11:57] LABS: SQUAMOUS EPITHELIAL CELL,UR MOD /LPF
[2019-05-10 11:58] LABS: BACTERIA,URINE 0 /HPF (0-FEW); RBC,URINE OCC /HPF (0-2); WBC,URINE OCC /HPF (0-4)
--- NOTE | 2019-05-10 11:59 | RAD ---
EXAM: Testicular sonogram. HISTORY: Pain and lump. TECHNIQUE: Yarbrough scale and color Doppler sonographic imaging of the testes with spectral waveform analysis was performed. COMPARISON: None. FINDINGS: The right testis measures 4.2 x 2.3 x 2.3 cm. The left testis measures 4.5 x 2.4 x 1.8 cm. There is normal symmetric blood flow within both testes. The epididymides are unremarkable. There is a 5 x 4 x 2 mm hypoechoic lesion within the left scrotal wall at the site of palpable concern. This elicits no internal blood flow. There is no varicocele or hydrocele. IMPRESSION: 1. 5 mm nonvascular hypoechoic lesion along the inferior left scrotal wall at the site of palpable concern. If there is overlying pain and erythema, the possibility of a small abscess is not excluded. 2. Unremarkable testes. Electronically signed by: Nicolasa Madden MD (05/10/2019 11:56 AM) [facility]
[2019-05-10 12:16] LABS: BASO # 0.1 x10^3/uL (0.0-0.2); BASO % 1 % (0-3); EOS # 0.2 x10^3/uL (0.0-0.7); EOS % 2 % (0-3); HEMATOCRIT 45.5 % (39.0-53.0); HEMOGLOBIN 15.4 g/dL (13.0-17.5); LYMPH # 2.8 x10^3/uL (1.0-4.8); LYMPH % 36 % (24-48); MEAN CORPUSCULAR HEMOGLOBIN 30 pg (25-35); MEAN CORPUSCULAR HGB CONC 34 g/dL (31-37); MEAN CORPUSCULAR VOLUME 90 fL (79-100); MONO # 0.7 x10^3/uL (0.0-1.1); MONO % 10 % (0-9); NEUT % 51 % (31-73); PLATELET COUNT 251 x10^3/uL (140-400); RED BLOOD COUNT 5.08 x10^6/uL (4.30-5.70); RED CELL DISTRIBUTION WIDTH 14.8 % (11.5-14.5); WHITE BLOOD COUNT 7.8 x10^3/uL (4.0-11.0)
[2019-05-10 12:34] LABS: CALCIUM 8.8 mg/dL (8.5-10.1); GFR 101.2; POTASSIUM 3.8 mmol/L (3.5-5.1)
[2019-05-10 12:39] LABS: ALBUMIN 3.7 g/dL (3.4-5.0); ALBUMIN/GLOBULIN RATIO 0.9 (1.0-1.7); TOTAL BILIRUBIN 0.4 mg/dL (0.2-1.0); TOTAL PROTEIN 7.7 g/dL (6.4-8.2)
[2019-05-10] MEDS ORDERED: HYDR-3164 PO (13:03)
[2019-05-10] MEDS ORDERED: CEPH-264 PO (13:03)
[2019-05-10] MEDS ORDERED: SULF1TAB24 PO (13:03)
== END 2019-05-10 13:16 | disposition home or self-care (01) ==
LOC: ER 10:21
DX: N49.2 Inflammatory disorders of scrotum (principal); N50.819 Testicular pain, unspecified; L04.8 Acute lymphadenitis of other sites
CPT/HCPCS: 36415; 76870; 80053; 81001; 85025; 87491; 87591; 99285

== ENCOUNTER 2019-06-20 14:58 | Emergency (ER) | payer OTHER ==
[~2019-06-20] VITALS: Ht 170.2 cm; Wt 77.0 kg
[~2019-06-20 14:58] MED LIST changes: +CEPH-264 PO
[2019-06-20 16:18] VITALS: BP 133/65
[2019-06-20 16:40] LABS: BILIRUBIN,URINE NEGATIVE (NEG); CLARITY,URINE CLEAR; COLOR,URINE YELLOW; NITRITE,URINE NEGATIVE (NEG); PH,URINE 5.5 (<5.0-8.0); PROTEIN,URINE NEGATIVE (NEG-TRACE); UROBILINOGEN,URINE 0.2 mg/dL (0.2 mg/dL)
[2019-06-20 16:48] LABS: SQUAMOUS EPITHELIAL CELL,UR FEW /LPF
[2019-06-20 16:49] LABS: BACTERIA,URINE 0 /HPF (0-FEW); RBC,URINE OCC /HPF (0-2); WBC,URINE 0 /HPF (0-4)
[2019-06-20 16:55] LABS: BARBITURATES NEG (NEG); BENZODIAZEPINES NEG (NEG); CANNABINOIDS POS (NEG); COCAINE NEG (NEG); METHADONE NEG (NEG); OPIATES NEG (NEG); PHENCYCLIDINE NEG (NEG)
[2019-06-20 16:57] LABS: AMPHETAMINE/METHAMPHETAMINE NEG (NEG)
[2019-06-20] MEDS ORDERED: ACETAMINOPHEN 500 MG TABLET PO ONE (17:00)
--- NOTE | 2019-06-20 17:33 | RAD ---
Testicular ultrasound HISTORY: Testicular lumps. FINDINGS: Right testicle measures 4.1 x 2.4 x 1.9 cm. Left testicle measures 4.6 x 2.0 x 1.8 centers. No testicular mass, edema, microlithiasis or hypervascularity. There is symmetric intact bilateral testicular blood flow with normal arterial waveforms documented without evidence of torsion. No mass, hypervascularity or enlargement of the epididymis bilaterally. No hydrocele documented. At the right scrotum palpable area there is an intradermal 6 mm oval hypoechoic focus, no extratesticular mass deep to the skin documented. IMPRESSION: 1. Normal sonography of the testicles. No testicular mass or torsion evident. 2. 6 mm hypoechoic intradermal ill-defined focus at the palpable area of the right scrotum. This is indeterminate. This may represent a focal area of inflammation. No well-defined epidermoid or abscess evident. No underlying soft tissue edema evident. Electronically signed by: Baldemar Cabrera MD (06/20/2019 5:31 PM) [id number]
--- NOTE | 2019-06-20 18:01 | PHYS DOC ---
Past Medical History Past Medical History: No Pertinent History Additional Past Medical Histor: patient denies (COMPA REYES JACKSON) Past Surgical History: No Surgical History Additional Past Surgical Histo: patient denies (COMPA REYES JACKSON) Smoking Status: Current Every Day Smoker Alcohol Use: None Drug Use: None (XAVIERLOISCOMPA PAZ) Adult General Chief Complaint Chief Complaint: PAIN ON URINATION HPI HPI Patient is a 39 year old male patient who presents to the ED today complaining of bumps on his scrotum region since March 2019. Patient reports he was seen at [facility] for the same bumps as well as [facility]. He states they did not find any acute cause for them. Denies any concern for STDs. Denies any urgency, frequency or dysuria. (XAVIERLOISCOMPA APRN) Review of Systems Review of Systems Constitutional: Denies fever or chills [] Eyes: Denies change in visual acuity, redness, or eye pain [] HENT: Denies nasal congestion or sore throat [] Respiratory: Denies cough or shortness of breath [] Cardiovascular: No additional information not addressed in HPI [] GI: Denies abdominal pain, nausea, vomiting, bloody stools or diarrhea [] : Reports penile bumps. Denies dysuria or hematuria [] Musculoskeletal: Denies back pain or joint pain [] Integument: Denies rash or skin lesions [] Neurologic: Denies headache, focal weakness or sensory changes [] All other systems were reviewed and found to be within normal limits, except as documented in this note. (COMPA REYES APRN) Current Medications Current Medications Current Medications Medications (Trade) Dose Ordered Sig/Aramis Start Time Stop Time Status Last Admin Dose Admin Acetaminophen (Tylenol) 1,000 mg 1X ONCE 06/20/19 17:00 06/20/19 17:01 DC 06/20/19 16:58 1,000 MG (ABDON PIERRE MD) Allergies Allergies Allergies Coded Allergies Type Severity Reaction Last Updated Verified No Known Drug Allergies 07/19/17 No (ABDON PIERRE MD) Physical Exam Physical Exam Constitutional: Well developed, well nourished, no acute distress, non-toxic appearance. [] HENT: Normocephalic, atraumatic, bilateral external ears normal, oropharynx moist, no oral exudates, nose normal. [] Eyes: PERRLA, EOMI, conjunctiva normal, no discharge. [] Neck: Normal range of motion, no tenderness, supple, no stridor. [] Cardiovascular:Heart rate regular rhythm, no murmur [] Lungs & Thorax: Bilateral breath sounds clear to auscultation [] Abdomen: Bowel sounds normal, soft, no tenderness, no masses, no pulsatile masses. 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 Left testicle with a palpable tiny mass with no erythema, no tenderness, no drainage. No penile discharge. Skin: Warm, dry, no erythema, no rash. [] Back: No tenderness, no CVA tenderness. [] Extremities: No tenderness, no cyanosis, no clubbing, ROM intact, no edema. [] Neurologic: Alert and oriented X 3, normal motor function, normal sensory function, no focal deficits noted. [] Psychologic: Affect normal, judgement normal, mood normal. [] (COMPA REYES APRN) Current Patient Data Vital Signs Vital Signs Date Time Temp Pulse Resp B/P (MAP) Pulse Ox O2 Delivery O2 Flow Rate FiO2 06/20/19 16:18 98.8 70 18 133/65 (87) 97 Room Air 98.8 (ABDON PIERRE MD) Lab Values Laboratory Tests Test 06/20/19 16:21 Urine Collection Type Unknown Urine Color Yellow Urine Clarity Clear Urine pH 5.5 (<5.0-8.0) Urine Specific Lenora 1.020 (1.000-1.030) Urine Protein Negative mg/dL (NEG-TRACE) Urine Glucose (UA) Negative mg/dL (NEG) Urine Ketones (Stick) Negative mg/dL (NEG) Urine Blood Negative (NEG) Urine Nitrite Negative (NEG) Urine Bilirubin Negative (NEG) Urine Urobilinogen Dipstick 0.2 mg/dL (0.2 mg/dL) Urine Leukocyte Esterase Negative (NEG) Urine RBC Occ /HPF (0-2) Urine WBC 0 /HPF (0-4) Urine Squamous Epithelial Cells Few /LPF Urine Bacteria 0 /HPF (0-FEW) Urine Mucus Mod /LPF Urine Opiates Screen Neg (NEG) Urine Methadone Screen Neg (NEG) Urine Barbiturates Neg (NEG) Urine Phencyclidine Screen Neg (NEG) Urine Amphetamine/Methamphetamine Neg (NEG) Urine Benzodiazepines Screen Neg (NEG) Urine Cocaine Screen Neg (NEG) Urine Cannabinoids Screen Pos (NEG) Urine Ethyl Alcohol Neg (NEG) (ABDON PIERRE MD) EKG EKG [] (COMPA REYES APRN) Radiology/Procedures Radiology/Procedures []PROCEDURE: TESTICULAR/SCROTUM Testicular ultrasound HISTORY: Testicular lumps. FINDINGS: Right testicle measures 4.1 x 2.4 x 1.9 cm. Left testicle measures 4.6 x 2.0 x 1.8 centers. No testicular mass, edema, microlithiasis or hypervascularity. There is symmetric intact bilateral testicular blood flow with normal arterial waveforms documented without evidence of torsion. No mass, hypervascularity or enlargement of the epididymis bilaterally. No hydrocele documented. At the right scrotum palpable area there is an intradermal 6 mm oval hypoechoic focus, no extratesticular mass deep to the skin documented. IMPRESSION: 1. Normal sonography of the testicles. No testicular mass or torsion evident. 2. 6 mm hypoechoic intradermal ill-defined focus at the palpable area of the right scrotum. This is indeterminate. This may represent a focal area of inflammation. No well-defined epidermoid or abscess evident. No underlying soft tissue edema evident. Electronically signed by: Heavenly Cabrera MD (06/20/2019 5:31 PM) [id number] DICTATED and SIGNED BY: HEAVENLY CABRERA MD DATE: 06/20/19 173 (COMPA REYES APRN) Course & Med Decision Making Course & Med Decision Making Pertinent Labs and Imaging studies reviewed. (See chart for details) This is a 39-year-old male patient presenting to the ED today complaining of bumps on his scrotum region since March 2019. He has been seen at [facility] as well as [facility] and worked up with no acute findings per his statement. Urine analysis is negative for any acute findings. Scrotal ultrasound -normal sonography of the testicles. No testicular mass or torsion evident. 6 mm hypoechoic intradermal ill-defined focus at the palpable area of the right scrotum. This is indeterminate. This may represent a focal area of inflammation. No well-defined epidermoid or abscess evident. No underlying soft tissue edema evident. Considering patient's above findings I recommended he follows up with a urologist. Provided him contact information for [facility] referral line. Recommended ibuprofen as well as scrotal elevation. (COMPA REYES APRN) Course & Med Decision Making I was not involved in the care of this patient before 1800 on 06/20/2019. (ABDON PIERRE MD) Dragon Disclaimer Dragon Disclaimer This electronic medical record was generated, in whole or in part, using a voice recognition dictation system. (COMPA REYES APRN) Departure Departure Impression: Primary Impression: Scrotal mass Disposition: HOME, SELF-CARE Condition: STABLE Referrals: NO PCP (PCP) Call the referral line at [phone] and request referal to the urologist as soon as you can Patient Instructions: Scrotal Swelling Additional Instructions: You were evaluated in the emergency room and noted to have a tiny mass on your right scrotum region. Call the referral line at [phone] and request referal to the urologist as soon as you can COMPA REYES APRN Jun 20, 2019 18:01 ABDON PIERRE MD Jun 20, 2019 18:10
== END 2019-06-20 18:09 | disposition home or self-care (01) ==
LOC: ER 14:58
DX: N50.89 Other specified disorders of the male genital organs (principal); F17.200 Nicotine dependence, unspecified, uncomplicated
CPT/HCPCS: 76870; 80307; 81001; 87491; 87591; 99284-25